=== PATIENT | male | born 1935 | race Caucasian/White ===

== ENCOUNTER → 2016-03-25 | Outpatient (CLI) | payer MEDICARE, BC ==
[~2016-03-25] VITALS: Ht 180.3 cm; Wt 86.4 kg
[2016-03-25] VITALS (7 sets, daily range): BP systolic 106–121; BP diastolic 45–60; PULSE 58–68; TEMP 98
[~2016-03-25] MED LIST: CARDI-OMEGA1000 MG PO; HCTZ 25MG TAB25 MG PO; LIP PO; LISINOPRIL PO; LOPURIN300 MG PO; NIACIN500 M3 PO; PLAVIX 75MG TAB75 MG PO; VITAMIN D32000 IU PO
== END ==
LOC: COL.RAD 08:30
DX: R41.3 Other amnesia (principal); R26.89 Other abnormalities of gait and mobility; R93.0 Abnormal findings on diagnostic imaging of skull and head, not elsewhere classified
CPT/HCPCS: A9548; Q9965